=== PATIENT | male | born 1945 | race Caucasian/White ===

== ENCOUNTER 2017-08-19 14:49 | Emergency (ER) | payer OTHER ==
[~2017-08-19] VITALS: Ht 177.8 cm; Wt 111.6 kg
[2017-08-19 15:03] VITALS: BP 112/80
== END 2017-08-19 15:19 | disposition left against medical advice (07) ==
LOC: ER 14:49
DX: M79.671 Pain in right foot (principal); Z53.21 Procedure and treatment not carried out due to patient leaving prior to being seen by health care provider

== ENCOUNTER 2017-08-31 13:30 | Inpatient (IN) | payer OTHER, MEDICAID ==
[~2017-08-31] VITALS: Ht 177.8 cm; Wt 112.4 kg
[2017-08-31] MEDS ORDERED: ACETAMINOPHEN 325 MG TAB PO ONE ×2 (14:25→14:30)
[2017-08-31 15:25] LABS: Alanine Aminotransferase 27 U/L (16-61); Albumin 3.4 g/dL (3.4-5.0); Anion Gap 9 (5-15); Aspartate Aminotransferase 28 U/L (15-37); BUN/Creatinine Ratio 13.7; Blood Urea Nitrogen 18 mg/dL (7-18); Calcium 8.7 mg/dL (8.5-10.1); Carbon Dioxide 25 mmol/L (21-32); Chloride 106 mmol/L (98-107); GFR African American 69 mL/min; GFR Non-African American 57 mL/min; Glucose 135 mg/dL (74-106); Potassium 3.2 mmol/L (3.5-5.1); Sodium 140 mmol/L (136-145)
[2017-08-31 15:27] LABS: Alkaline Phosphatase 101 U/L (45-117); Bilirubin, Total 0.3 mg/dL (0.2-1.0); Total Protein 7.4 g/dL (6.4-8.2)
[2017-08-31] MEDS ORDERED: SODIUM CHLORIDE 0.9% 1,000 ML IV ONE (15:42)
[2017-08-31] MEDS ORDERED: SIMV-13 PO (16:11)
[2017-08-31] MEDS ORDERED: TERA2CAP45 PO (16:11)
[2017-08-31] MEDS ORDERED: FINA5TAB4 PO (16:11)
[2017-08-31] MEDS ORDERED: HYDR25TA4 PO (16:11)
[2017-08-31] MEDS ORDERED: ACET325T82 PO (16:11)
[2017-08-31] MEDS ORDERED: MULT-569 PO (16:11)
[2017-08-31] MEDS ORDERED: LOSA100T27 PO (16:11)
[2017-08-31] MEDS ORDERED: OMEP20TA PO (16:11)
[2017-08-31] MEDS ORDERED: DOCU-94 PO (16:11)
[2017-08-31] MEDS ORDERED: MULTCHW3 OR (16:11)
[2017-08-31] MEDS ORDERED: AZITHROMYCIN 500MG/ 250ML 250 ML IV ONE (17:00)
[2017-08-31] MEDS ORDERED: POTASSIUM CHLORIDE 8 MEQ TAB PO ONE (17:00)
[2017-08-31] MEDS ORDERED: cefTRIAXone 1GM/10ml IVPUSH 10 ML IV ONE (17:00)
[2017-08-31] MEDS ORDERED: ALUM & MAG HYDROX-SIMETH LIQ(MAALOX) 30 ML PO ONE (17:15)
[2017-08-31] MEDS ORDERED: HCTZ 25 MG TAB PO ONE (17:15)
[2017-08-31] MEDS ORDERED: ONDANSETRON HCL 4 MG/2 ML VIAL IV PRN (17:15)
[2017-08-31] MEDS ORDERED: NITROGLYCERIN 0.4 MG SL TAB SL PRN ×2 (17:15)
[2017-08-31] MEDS ORDERED: ZOLPIDEM TARTRATE 5 MG TAB PO PRN (17:15)
[2017-08-31] MEDS ORDERED: DEXTROSE (50%) 50ML SYRG IV PRN (17:15)
[2017-08-31] MEDS ORDERED: PANTOPRAZOLE 40 MG TAB PO ONE (17:15)
[2017-08-31] MEDS ORDERED: MORPHINE SULFATE 8mg/ml INJ SDV IV PRN (17:15)
[2017-08-31] MEDS ORDERED: LOSARTAN POTASSIUM 50 MG TAB PO ONE (17:15)
[2017-08-31] MEDS ORDERED: FINASTERIDE 5 MG TAB PO ONE (17:15)
[2017-08-31] MEDS ORDERED: MORPHINE SULFATE 4 MG/ML SYR/VIAL IV PRN (17:15)
[2017-08-31] MEDS: MULTIPLE VITAMIN TAB PO SCH (17:29)
[2017-08-31 17:34] LABS: Basophils # (auto) 0 uL; Basophils % (auto) 0.4 % (0.0-2.0); Eosinophils # (auto) 0.1 uL; Eosinophils % (auto) 1.1 % (0.0-7.0); Hematocrit 38.4 % (41.0-53.0); Lymphocytes # (auto) 1.3 uL; Mean Corpuscular Hemoglobin 30.2 pg (28.0-32.0); Mean Corpuscular Hgb Conc. 33.9 g/dL (32.0-36.0); Mean Corpuscular Volume 89.1 fL (80.0-100.0); Monocytes # (auto) 0.7 uL; Monocytes % (auto) 8.5 % (0.0-12.0); Nucleated Red Blood Cells % 0.1 %; Platelet Count (auto) 317 10^3/uL (140-450); Red Blood Cells 4.31 10^6/uL (4.5-5.90); Red Cell Distribution Width 14.7 % (11.8-14.3); White Blood Cell 8.1 10^3/uL (4.4-10.8)
[2017-08-31 18:53] LABS: Urine Bacteria NONE SEEN /hpf (None Seen); Urine Blood Negative /uL (Negative); Urine Specific Gravity 1.022 (1.001-1.035); Urine WBC 1 /hpf (0 - 3)
[2017-08-31 20:30] VITALS: BP 162/77
[2017-08-31] MEDS: ACETAMINOPHEN 325 MG TAB PO PRN (20:51)
[2017-08-31] MEDS: ATORVASTATIN 20 MG TAB PO SCH (21:07)
[2017-08-31] MEDS: CARVEDILOL 3.125 MG TAB PO SCH (21:08)
[2017-08-31] MEDS: TERAZOSIN HCL 1 MG CAP PO SCH (21:09)
[2017-08-31] MEDS: InsuLIN REG 1unit/0.01ml Soln (100units/ml) SC SCH (21:20)
[2017-08-31] MEDS: ACCU-CHEK COMFORT CURVE STRIP VI SCH (21:21)
[2017-08-31] MEDS: SODIUM CHLOR 0.9% PF (SALINE LOCK) 10ML VIAL/SYR IV SCH (21:21)
[2017-09-01] MEDS: LORazepam 0.5 MG TAB PO PRN (04:21)
[2017-09-01 04:57] VITALS: BP 136/65
[2017-09-01] MEDS: InsuLIN REG 1unit/0.01ml Soln (100units/ml) SC SCH ×4 (06:17→21:09)
[2017-09-01] MEDS: ACCU-CHEK COMFORT CURVE STRIP VI SCH ×4 (06:17→21:10)
[2017-09-01] MEDS: SODIUM CHLOR 0.9% PF (SALINE LOCK) 10ML VIAL/SYR IV SCH ×3 (06:17→21:09)
[2017-09-01] MEDS: ACETAMINOPHEN 325 MG TAB PO PRN ×4 (06:50→19:38)
[2017-09-01 06:54] LABS: Basophils # (auto) 0 uL; Basophils % (auto) 0.5 % (0.0-2.0); Eosinophils # (auto) 0.2 uL; Eosinophils % (auto) 2.1 % (0.0-7.0); Hematocrit 36.8 % (41.0-53.0); Hemoglobin 12.7 g/dL (13.5-17.5); Lymphocytes # (auto) 0.9 uL; Mean Corpuscular Hemoglobin 30.7 pg (28.0-32.0); Mean Corpuscular Hgb Conc. 34.5 g/dL (32.0-36.0); Monocytes # (auto) 0.5 uL; Monocytes % (auto) 6.6 % (0.0-12.0); Neutrophils % (auto) 78.8 % (37.0-80.0); Nucleated Red Blood Cells % 0.1 %; Platelet Count (auto) 308 10^3/uL (140-450); Red Blood Cells 4.13 10^6/uL (4.5-5.90); Red Cell Distribution Width 14.5 % (11.8-14.3); White Blood Cell 7.6 10^3/uL (4.4-10.8)
[2017-09-01 07:04] LABS: Albumin 3.3 g/dL (3.4-5.0); BUN/Creatinine Ratio 15.4; Bilirubin, Total 0.4 mg/dL (0.2-1.0); Calcium 8.8 mg/dL (8.5-10.1); Potassium 3.3 mmol/L (3.5-5.1); Total Protein 6.8 g/dL (6.4-8.2)
[2017-09-01 08:20] VITALS: BP 160/79
[2017-09-01 08:59] VITALS: BP 160/79
[2017-09-01] MEDS: cefTRIAXone 1GM/10ml IVPUSH 10 ML IV SCH (10:57)
[2017-09-01] MEDS: DOCUSATE SOD 100 MG CAP PO SCH (10:58)
[2017-09-01] MEDS: FINASTERIDE 5 MG TAB PO SCH (10:59)
[2017-09-01] MEDS: TERAZOSIN HCL 1 MG CAP PO SCH ×2 (10:59→21:02)
[2017-09-01] MEDS: LOSARTAN POTASSIUM 50 MG TAB PO SCH (11:00)
[2017-09-01] MEDS ORDERED: POTASSIUM CHL 20 Meq TABLET PO ONE (11:00)
[2017-09-01] MEDS: CARVEDILOL 3.125 MG TAB PO SCH ×2 (11:01→21:03)
[2017-09-01] MEDS: HCTZ 25 MG TAB PO SCH (11:01)
[2017-09-01] MEDS: MULTIPLE VITAMIN TAB PO SCH (11:02)
[2017-09-01] MEDS: CLOPIDOGREL BISULFATE 75 MG TAB PO SCH (11:02)
[2017-09-01] MEDS: PANTOPRAZOLE 40 MG TAB PO SCH (11:02)
[2017-09-01] MEDS: ASPirin 81 mg TAB PO SCH (11:03)
[2017-09-01] MEDS: AZITHROMYCIN 500MG/ 250ML 250 ML IV SCH (11:03)
[2017-09-01 13:00] VITALS: BP 147/75
[2017-09-01 16:55] VITALS: BP 121/61
[2017-09-01] MEDS: ATORVASTATIN 20 MG TAB PO SCH (21:03)
[2017-09-01 22:00] VITALS: BP 138/67
[2017-09-02] MEDS: LORazepam 0.5 MG TAB PO PRN ×2 (00:56→23:19)
[2017-09-02] MEDS: ACETAMINOPHEN 325 MG TAB PO PRN ×4 (03:47→20:18)
[2017-09-02 04:58] VITALS: BP 132/55
[2017-09-02] MEDS: SODIUM CHLOR 0.9% PF (SALINE LOCK) 10ML VIAL/SYR IV SCH ×3 (06:06→21:34)
[2017-09-02] MEDS: ACCU-CHEK COMFORT CURVE STRIP VI SCH ×4 (06:07→21:43)
[2017-09-02] MEDS: InsuLIN REG 1unit/0.01ml Soln (100units/ml) SC SCH ×4 (06:15→21:42)
[2017-09-02 06:53] LABS: BUN/Creatinine Ratio 17.3; Potassium 3.5 mmol/L (3.5-5.1)
[2017-09-02 07:27] VITALS: BP 161/89
[2017-09-02] MEDS: DOCUSATE SOD 100 MG CAP PO SCH (10:00)
[2017-09-02] MEDS ORDERED: ALBUTEROL SULF 2.5 MG/0.5ML(0.5%) NEB SOLN NEB PRN (10:30)
[2017-09-02] MEDS: AZITHROMYCIN 500MG/ 250ML 250 ML IV SCH (10:34)
[2017-09-02] MEDS: cefTRIAXone 1GM/10ml IVPUSH 10 ML IV SCH (10:34)
[2017-09-02] MEDS: LOSARTAN POTASSIUM 50 MG TAB PO SCH (10:35)
[2017-09-02] MEDS: MULTIPLE VITAMIN TAB PO SCH (10:36)
[2017-09-02] MEDS: CARVEDILOL 3.125 MG TAB PO SCH ×2 (10:36→21:34)
[2017-09-02] MEDS: HCTZ 25 MG TAB PO SCH (10:37)
[2017-09-02] MEDS: PANTOPRAZOLE 40 MG TAB PO SCH (10:42)
[2017-09-02] MEDS: CLOPIDOGREL BISULFATE 75 MG TAB PO SCH (10:43)
[2017-09-02] MEDS: FINASTERIDE 5 MG TAB PO SCH (10:43)
[2017-09-02] MEDS: TERAZOSIN HCL 1 MG CAP PO SCH ×2 (10:43→21:33)
[2017-09-02] MEDS: ASPirin 81 mg TAB PO SCH (10:43)
[2017-09-02 13:00] VITALS: BP 134/77
[2017-09-02 17:14] VITALS: BP 142/78
[2017-09-02] MEDS: ATORVASTATIN 20 MG TAB PO SCH (21:34)
[2017-09-02 22:00] VITALS: BP 120/69
[2017-09-03 05:00] VITALS: BP 128/90
[2017-09-03 05:31] LABS: Basophils # (auto) 0 uL; Basophils % (auto) 0.5 % (0.0-2.0); Eosinophils # (auto) 0.2 uL; Eosinophils % (auto) 2.2 % (0.0-7.0); Hematocrit 37.5 % (41.0-53.0); Hemoglobin 12.8 g/dL (13.5-17.5); Lymphocytes # (auto) 1.1 uL; Lymphocytes % (auto) 13.3 % (10.0-50.0); Mean Corpuscular Hemoglobin 30.6 pg (28.0-32.0); Mean Corpuscular Hgb Conc. 34.2 g/dL (32.0-36.0); Mean Corpuscular Volume 89.6 fL (80.0-100.0); Monocytes # (auto) 0.6 uL; Monocytes % (auto) 6.7 % (0.0-12.0); Neutrophils # (auto) 6.4 uL; Neutrophils % (auto) 77.3 % (37.0-80.0); Nucleated Red Blood Cells % 0.1 %; Platelet Count (auto) 296 10^3/uL (140-450); Red Blood Cells 4.19 10^6/uL (4.5-5.90); Red Cell Distribution Width 14.4 % (11.8-14.3); White Blood Cell 8.3 10^3/uL (4.4-10.8)
[2017-09-03 05:46] LABS: BUN/Creatinine Ratio 19.4; Calcium 8.9 mg/dL (8.5-10.1); Potassium 3.4 mmol/L (3.5-5.1)
[2017-09-03] MEDS: InsuLIN REG 1unit/0.01ml Soln (100units/ml) SC SCH ×4 (06:13→21:56)
[2017-09-03] MEDS: SODIUM CHLOR 0.9% PF (SALINE LOCK) 10ML VIAL/SYR IV SCH ×3 (06:13→21:47)
[2017-09-03] MEDS: ACCU-CHEK COMFORT CURVE STRIP VI SCH ×4 (06:13→21:48)
[2017-09-03] MEDS: ACETAMINOPHEN 325 MG TAB PO PRN ×2 (08:06→20:11)
[2017-09-03 09:00] VITALS: BP 157/79
[2017-09-03] MEDS: cefTRIAXone 1GM/10ml IVPUSH 10 ML IV SCH (09:00)
[2017-09-03] MEDS: TERAZOSIN HCL 1 MG CAP PO SCH ×2 (09:36→21:47)
[2017-09-03] MEDS: ASPirin 81 mg TAB PO SCH (09:38)
[2017-09-03] MEDS: LOSARTAN POTASSIUM 50 MG TAB PO SCH (09:38)
[2017-09-03] MEDS: MULTIPLE VITAMIN TAB PO SCH (09:38)
[2017-09-03] MEDS: PANTOPRAZOLE 40 MG TAB PO SCH (09:39)
[2017-09-03] MEDS: CARVEDILOL 3.125 MG TAB PO SCH ×2 (09:39→21:47)
[2017-09-03] MEDS: HCTZ 25 MG TAB PO SCH (09:39)
[2017-09-03] MEDS: FINASTERIDE 5 MG TAB PO SCH (09:40)
[2017-09-03] MEDS: CLOPIDOGREL BISULFATE 75 MG TAB PO SCH (09:41)
[2017-09-03] MEDS: DOCUSATE SOD 100 MG CAP PO SCH (09:49)
[2017-09-03] MEDS: AZITHROMYCIN 500MG/ 250ML 250 ML IV SCH (09:50)
[2017-09-03] MEDS ORDERED: POTASSIUM CHL 20 Meq TABLET PO ONE (12:45)
[2017-09-03 13:00] VITALS: BP 123/72
[2017-09-03] MEDS ORDERED: HYDROcodone-ACET 5/325MG TAB PO PRN (14:15)
[2017-09-03] MEDS: HYDROcodone-ACET 5/325MG TAB PO PRN (14:51)
[2017-09-03 17:00] VITALS: BP 127/60
[2017-09-03] MEDS: ATORVASTATIN 20 MG TAB PO SCH (21:48)
[2017-09-03 22:00] VITALS: BP 139/61
[2017-09-04] MEDS: LORazepam 0.5 MG TAB PO PRN (00:13)
[2017-09-04] MEDS: ACETAMINOPHEN 325 MG TAB PO PRN ×4 (04:32→17:48)
[2017-09-04 05:00] VITALS: BP 127/62
[2017-09-04] MEDS: SODIUM CHLOR 0.9% PF (SALINE LOCK) 10ML VIAL/SYR IV SCH ×3 (06:26→21:32)
[2017-09-04] MEDS: InsuLIN REG 1unit/0.01ml Soln (100units/ml) SC SCH ×4 (06:26→21:39)
[2017-09-04] MEDS: ACCU-CHEK COMFORT CURVE STRIP VI SCH ×4 (06:26→21:33)
[2017-09-04 08:00] VITALS: BP 133/73
[2017-09-04] MEDS: cefTRIAXone 1GM/10ml IVPUSH 10 ML IV SCH (08:37)
[2017-09-04] MEDS: CLOPIDOGREL BISULFATE 75 MG TAB PO SCH (10:42)
[2017-09-04] MEDS: PANTOPRAZOLE 40 MG TAB PO SCH (10:43)
[2017-09-04] MEDS: DOCUSATE SOD 100 MG CAP PO SCH (10:43)
[2017-09-04] MEDS: TERAZOSIN HCL 1 MG CAP PO SCH ×2 (10:44→21:32)
[2017-09-04] MEDS: ASPirin 81 mg TAB PO SCH (10:44)
[2017-09-04] MEDS: CARVEDILOL 3.125 MG TAB PO SCH ×2 (10:45→21:32)
[2017-09-04] MEDS: FINASTERIDE 5 MG TAB PO SCH (10:46)
[2017-09-04] MEDS: MULTIPLE VITAMIN TAB PO SCH (10:46)
[2017-09-04] MEDS: HCTZ 25 MG TAB PO SCH (10:46)
[2017-09-04] MEDS: AZITHROMYCIN 500MG/ 250ML 250 ML IV SCH (10:47)
[2017-09-04] MEDS: LOSARTAN POTASSIUM 50 MG TAB PO SCH (10:47)
[2017-09-04 12:00] VITALS: BP 134/77
[2017-09-04 17:00] VITALS: BP 126/72
[2017-09-04 18:55] VITALS: BP 126/72
[2017-09-04] MEDS: HYDROcodone-ACET 5/325MG TAB PO PRN (19:58)
[2017-09-04] MEDS: ATORVASTATIN 20 MG TAB PO SCH (21:33)
[2017-09-04 22:00] VITALS: BP 122/71
[2017-09-05 05:34] VITALS: BP 120/57
[2017-09-05] MEDS: ACCU-CHEK COMFORT CURVE STRIP VI SCH ×3 (06:12→17:00)
[2017-09-05] MEDS: SODIUM CHLOR 0.9% PF (SALINE LOCK) 10ML VIAL/SYR IV SCH ×2 (06:12→15:29)
[2017-09-05] MEDS: HYDROcodone-ACET 5/325MG TAB PO PRN ×3 (06:13→19:53)
[2017-09-05] MEDS: InsuLIN REG 1unit/0.01ml Soln (100units/ml) SC SCH ×3 (06:20→17:00)
[2017-09-05 06:47] LABS: Basophils # (auto) 0 uL; Basophils % (auto) 0.5 % (0.0-2.0); Eosinophils # (auto) 0.2 uL; Eosinophils % (auto) 1.8 % (0.0-7.0); Hematocrit 38.2 % (41.0-53.0); Hemoglobin 13.1 g/dL (13.5-17.5); Lymphocytes # (auto) 1.1 uL; Lymphocytes % (auto) 13.9 % (10.0-50.0); Mean Corpuscular Hemoglobin 30.9 pg (28.0-32.0); Mean Corpuscular Hgb Conc. 34.3 g/dL (32.0-36.0); Monocytes # (auto) 0.6 uL; Monocytes % (auto) 7.1 % (0.0-12.0); Neutrophils # (auto) 6.3 uL; Neutrophils % (auto) 76.7 % (37.0-80.0); Nucleated Red Blood Cells % 0.2 %; Platelet Count (auto) 307 10^3/uL (140-450); Red Blood Cells 4.24 10^6/uL (4.5-5.90); Red Cell Distribution Width 14.6 % (11.8-14.3); White Blood Cell 8.2 10^3/uL (4.4-10.8)
[2017-09-05 07:05] LABS: BUN/Creatinine Ratio 17.1; Potassium 3.8 mmol/L (3.5-5.1)
[2017-09-05 08:57] VITALS: BP 137/75
[2017-09-05] MEDS: AZITHROMYCIN 500MG/ 250ML 250 ML IV SCH (09:55)
[2017-09-05] MEDS: cefTRIAXone 1GM/10ml IVPUSH 10 ML IV SCH (09:55)
[2017-09-05] MEDS: MULTIPLE VITAMIN TAB PO SCH (09:55)
[2017-09-05] MEDS: FINASTERIDE 5 MG TAB PO SCH (09:56)
[2017-09-05] MEDS: ASPirin 81 mg TAB PO SCH (09:56)
[2017-09-05] MEDS: LOSARTAN POTASSIUM 50 MG TAB PO SCH (09:56)
[2017-09-05] MEDS: PANTOPRAZOLE 40 MG TAB PO SCH (09:57)
[2017-09-05] MEDS: TERAZOSIN HCL 1 MG CAP PO SCH (09:57)
[2017-09-05] MEDS: CLOPIDOGREL BISULFATE 75 MG TAB PO SCH (09:58)
[2017-09-05] MEDS: HCTZ 25 MG TAB PO SCH (09:58)
[2017-09-05] MEDS: DOCUSATE SOD 100 MG CAP PO SCH (09:58)
[2017-09-05] MEDS: CARVEDILOL 3.125 MG TAB PO SCH (09:58)
[2017-09-05 13:18] VITALS: BP 121/59
[2017-09-05] MEDS: LORazepam 0.5 MG TAB PO PRN ×2 (15:45→21:49)
[2017-09-05 16:52] VITALS: BP_SYST 100; BP_SYST 128; BP_DIAS 57; BP_DIAS 69
[2017-09-05 21:06] VITALS: BP 117/61
== END 2017-09-05 22:00 | disposition home or self-care (01) | DRG 194 ==
LOC: ER 13:30 → TELE 13:31 → TELE-CENTR 20:15
PROVIDERS: ADMIT Internal Medicine; ATTEND Internal Medicine
DX: J18.1 Lobar pneumonia, unspecified organism (principal); J90 Pleural effusion, not elsewhere classified; E11.22 Type 2 diabetes mellitus with diabetic chronic kidney disease; E11.65 Type 2 diabetes mellitus with hyperglycemia; J80 Acute respiratory distress syndrome; N18.3 Chronic kidney disease, stage 3 (moderate); I12.9 Hypertensive chronic kidney disease with stage 1 through stage 4 chronic kidney disease, or unspecified chronic kidney disease; E87.6 Hypokalemia; M45.9 Ankylosing spondylitis of unspecified sites in spine; E78.5 Hyperlipidemia, unspecified; E66.9 Obesity, unspecified; K44.9 Diaphragmatic hernia without obstruction or gangrene; E78.1 Pure hyperglyceridemia; F41.1 Generalized anxiety disorder; R09.02 Hypoxemia; R07.89 Other chest pain; Z85.048 Personal history of other malignant neoplasm of rectum, rectosigmoid junction, and anus
CPT/HCPCS: 36415; 71045; 71046; 80048; 80053; 80061; 81001; 82962; 83036; 83735; 83880; 84443; 84484; 85025; 87040; 87070; 87086; 87205; 87493; 93005; 93306; 94761; 96365; 96375; J2405